=== PATIENT | female | born 1950 | race Two or more races ===

== ENCOUNTER 2020-04-30 08:43 | Outpatient (CLI) | payer OTHER | END 2020-04-30 08:51 | disposition home or self-care (01) | LOC: TOM 08:43 | DX: Q61.01 Congenital single renal cyst (principal); Z12.11 Encounter for screening for malignant neoplasm of colon; K44.9 Diaphragmatic hernia without obstruction or gangrene; K42.9 Umbilical hernia without obstruction or gangrene ==